=== PATIENT | male | born 1990 | race Caucasian/White ===

== ENCOUNTER → 2018-01-23 | Outpatient (CLI) | payer OTHER ==
--- NOTE | 2018-01-23 09:52 | RAD ---
Examination: TESTICULAR/SCROTUM History: PENIS FRACTURE APPROX 1 YEAR AGO. Pain at the base of the penis. Comparison/Correlation: None Findings: Ultrasound imaging of the penis was performed. Testicles and scrotum are not fully imaged for purposes of this exam. Dorsal vessels of the penis are identified with flow evident on color Doppler imaging. Corpus cavernosum is symmetric in appearance and unremarkable. No evidence of discontinuity on images provided. Corpus spongiosum is unremarkable on the limited images provided. There is no fluid collection identified about the base of the penis. No mass identified. Impression: No mass or collection. Unremarkable exam. Electronically signed by: Sarmad Botello MD (01/23/2018 9:49 AM) [facility]
== END | disposition home or self-care (01) ==
LOC: US 08:30
DX: N48.89 Other specified disorders of penis (principal); N50.819 Testicular pain, unspecified
CPT/HCPCS: 76870